=== PATIENT | male | born 1965 | race Caucasian/White ===

== ENCOUNTER 2018-01-02 19:07 | Emergency (ER) | payer SELFPAY ==
[~2018-01-02] VITALS: Ht 177.8 cm; Wt 90.9 kg
[2018-01-02 19:14] VITALS: BP 121/104
== END 2018-01-02 21:19 | disposition left against medical advice (07) ==
LOC: ER 19:08
DX: F41.9 Anxiety disorder, unspecified (principal); R00.9 Unspecified abnormalities of heart beat; Z53.21 Procedure and treatment not carried out due to patient leaving prior to being seen by health care provider
CPT/HCPCS: 93005; 99281

== ENCOUNTER 2018-01-19 00:07 | Emergency (ER) | payer BC ==
[~2018-01-19] VITALS: Ht 177.8 cm; Wt 89.9 kg
[2018-01-19 02:37] VITALS: BP 132/95
== END 2018-01-19 02:41 | disposition home or self-care (01) ==
LOC: ER 00:08
DX: R00.2 Palpitations (principal); I10 Essential (primary) hypertension; F12.10 Cannabis abuse, uncomplicated; Z87.891 Personal history of nicotine dependence
CPT/HCPCS: 36415; 84484; 93005; 99285

== ENCOUNTER 2018-04-01 14:28 | Day surgery (SDC) | payer BC ==
[2018-03-27 10:48] LABS: ALBUMIN 3.8 G/DL (3.4-5.0); ANION GAP 10 (8-16); BLOOD UREA NITROGEN 15 MG/DL (7-18); BUN/CREATININE RATIO 15.3 (5.4-32.0); CHLORIDE 104 MMOL/L (99-107); CREATININE 0.98 MG/DL (0.60-1.10); GLUCOSE 114 MG/DL (70-104); POTASSIUM 4.3 MMOL/L (3.5-5.1); SODIUM 140 MMOL/L (135-145); TOTAL CARBON DIOXIDE 25.8 MMOL/L (24-32); eGFR 80 ML/MIN
[2018-03-27 10:49] LABS: PARTIAL THROMBOPLASTIN TIME 29 SECONDS (22-32); PROTHROMBIN TIME 10.8 SECONDS (9.0-12.0)
[2018-03-27 10:50] LABS: BASOPHILS # (AUTO) 0.1 X10'3 (0-0.2); BASOPHILS % (AUTO) 0.8 % (0-1); EOSINOPHILS # (AUTO) 0.1 X10'3 (0-0.9); EOSINOPHILS % (AUTO) 2.2 % (0-6); HEMATOCRIT 43.6 % (42.0-52.0); HEMOGLOBIN 15.1 g/dl (14.0-17.9); LYMPHOCYTES # (AUTO) 1.6 X10'3 (1.1-4.8); LYMPHOCYTES % (AUTO) 25.3 % (21-51); MEAN CORPUSCULAR HEMOGLOBIN 31.4 PG (27.0-31.0); MEAN CORPUSCULAR HGB CONC 34.7 % (33.0-36.5); MEAN CORPUSCULAR VOLUME 90.4 FL (78-98); MEAN PLATELET VOLUME 7.5 FL (7.4-10.4); MONOCYTES # (AUTO) 0.6 X10'3 (0-0.9); MONOCYTES % (AUTO) 10.3 % (2-12); NEUTROPHILS # (AUTO) 3.8 X10'3 (1.8-7.7); NEUTROPHILS % (AUTO) 61.4 % (42-75); PLATELET COUNT 247 X10'3 (140-440); RED BLOOD COUNT 4.82 X10'6 (4.70-6.10); RED CELL DISTRIBUTION WIDTH 14.3 % (11.5-14.5); WHITE BLOOD COUNT 6.2 X10'3 (4.5-11.0)
[2018-04-01] VITALS (7 sets, daily range): BP systolic 111–129; BP diastolic 73–85
[~2018-04-01] VITALS: Ht 177.8 cm; Wt 89.6 kg
[2018-04-01] MEDS ORDERED: LIDOcaine/PRILOcaine 5gm cream TP ONE (14:50)
[2018-04-01] MEDS ORDERED: normal saline 1000ml 1,000 ML IV SCH (14:50)
[2018-04-01] MEDS ORDERED: diphenhydrAMINE 25mg capsule PO PRN (14:50)
[2018-04-01] MEDS ORDERED: LORazepam 0.5 MG tablet PO PRN (14:50)
[2018-04-01] MEDS ORDERED: ASPI-611 PO (15:31)
[2018-04-01] MEDS ORDERED: ALPR-624 PO (15:31)
[2018-04-01] MEDS ORDERED: NORT75CA PO (15:31)
[2018-04-01] MEDS ORDERED: ALFU10TA PO (15:31)
[2018-04-01] MEDS ORDERED: BUPR300T54 PO (15:31)
[2018-04-01] MEDS ORDERED: BENA20TA76 PO (15:31)
[2018-04-01] MEDS ORDERED: LAMO100T2 PO (15:31)
[2018-04-01] MEDS ORDERED: SILD100T PO (15:32)
[2018-04-01] MEDS ORDERED: Marjuana INH (15:34)
[2018-04-01] MEDS ORDERED: LIDOcaine 1% w/EPI 1:100,000 30ml vial (MDV) ONE (17:58)
[2018-04-01] MEDS ORDERED: iohexol 350MG/ML 100ml bottle IV ONE (17:58)
[2018-04-01] MEDS ORDERED: fentaNYL/PF 50MCG/1 ML 2ML syringe ONE (18:18)
[2018-04-01] MEDS ORDERED: proCHLORperazine 10 MG/2 ml inj ONE (18:18)
[2018-04-01] MEDS ORDERED: midazolam 2 mg/2 ml injection ONE (18:18)
[2018-04-01] MEDS ORDERED: verapamil 2.5 mg/ml inj IV ONE (18:25)
[2018-04-01] MEDS ORDERED: nitroGLYCERIN-Tridil 50MG/D5W 250 ML IV ONE (18:25)
[2018-04-01] MEDS ORDERED: LIDOcaine 1% 30ml preserv. free vial ONE (18:25)
[2018-04-01] MEDS ORDERED: heparin 1,000unit/ml 10ml vial 10 ML ONE (18:26)
[2018-04-01] MEDS ORDERED: OXAZEpam 15mg capsule PO PRN (19:30)
[2018-04-01] MEDS ORDERED: nitroGLYCERIN 0.4mg SUBLingual tab SL PRN (19:30)
== END 2018-04-01 20:26 | disposition home or self-care (01) ==
LOC: SSTAY O 14:28
PROVIDERS: ATTEND Internal Medicine Interventional Cardiology
DX: R94.39 Abnormal result of other cardiovascular function study (principal); I10 Essential (primary) hypertension; E78.5 Hyperlipidemia, unspecified; F41.8 Other specified anxiety disorders; F32.89 Other specified depressive episodes; I47.9 Paroxysmal tachycardia, unspecified; N40.0 Benign prostatic hyperplasia without lower urinary tract symptoms; Z79.891 Long term (current) use of opiate analgesic; Z87.891 Personal history of nicotine dependence; Z72.89 Other problems related to lifestyle; Z79.82 Long term (current) use of aspirin; Z79.899 Other long term (current) drug therapy
CPT/HCPCS: 36415; 80048; 85025; 85610; 85730; 93005; 93458; 99152; A6257; A6258; A6402; J0780; J1644; J2250; J3010; J3490; J7030; Q0163; Q9967; A4620

== ENCOUNTER 2019-04-24 01:17 | Emergency (ER) | payer BC, MEDICAID ==
[~2019-04-24] VITALS: Ht 177.8 cm; Wt 88.6 kg
[~2019-04-24 01:17] MED LIST: ALFU10TA PO; ALPR-624 PO; ASPI-611 PO; BENA20TA76 PO; BUPR300T54 PO; LAMO100T2 PO; Marjuana INH; NORT75CA PO; SILD100T PO
[2019-04-24 01:41] LABS: BASOPHILS % (AUTO) 0.4 % (0-1); EOSINOPHILS # (AUTO) 0.2 X10'3 (0-0.9); EOSINOPHILS % (AUTO) 2.6 % (0-6); HEMATOCRIT 44.1 % (42.0-52.0); HEMOGLOBIN 14.9 g/dl (14.0-17.9); LYMPHOCYTES # (AUTO) 2.5 X10'3 (1.1-4.8); LYMPHOCYTES % (AUTO) 31.3 % (21-51); MEAN CORPUSCULAR HEMOGLOBIN 30.5 PG (27.0-31.0); MEAN CORPUSCULAR HGB CONC 33.9 g/dL (33.0-36.5); MEAN CORPUSCULAR VOLUME 89.9 FL (78-98); MONOCYTES # (AUTO) 0.9 X10'3 (0-0.9); MONOCYTES % (AUTO) 10.9 % (2-12); NEUTROPHILS # (AUTO) 4.3 X10'3 (1.8-7.7); NEUTROPHILS % (AUTO) 54.8 % (42-75); PLATELET COUNT 265 X10'3 (140-440); RED CELL DISTRIBUTION WIDTH 14.1 % (11.5-14.5); WHITE BLOOD COUNT 7.9 X10'3 (4.5-11.0)
[2019-04-24 01:52] LABS: PARTIAL THROMBOPLASTIN TIME 29 SECONDS (22-32)
[2019-04-24 01:55] LABS: ALANINE AMINOTRANSFERASE 63 U/L (12-78); ALBUMIN 3.6 G/DL (3.4-5.0); ALBUMIN/GLOBULIN RATIO 1.1 (1.1-1.5); ALKALINE PHOSPHATASE 114 IU/L (46-116); ANION GAP 9 (8-16); ASPARTATE AMINO TRANSFERASE 53 U/L (10-37); BILIRUBIN,TOTAL 0.7 MG/DL (0.1-1.0); BLOOD UREA NITROGEN 24 MG/DL (7-18); BUN/CREATININE RATIO 26.1 (5.4-32.0); CALCIUM 8.4 MG/DL (8.5-10.1); CHLORIDE 104 MMOL/L (99-107); CREATININE 0.92 MG/DL (0.60-1.10); GLUCOSE 114 MG/DL (70-104); LIPASE 192 U/L (73-393); POTASSIUM 4.2 MMOL/L (3.5-5.1); SODIUM 139 MMOL/L (135-145); TOTAL CARBON DIOXIDE 26.3 MMOL/L (24-32); TOTAL PROTEIN 6.9 G/DL (6.4-8.2); eGFR 86 ML/MIN
[2019-04-24] MEDS ORDERED: LIDOcaine Viscous 15ml cup PO ONE (02:15)
[2019-04-24] MEDS ORDERED: mag hydrox/Alum hydrox/simeth 30ml oral suspension PO ONE (02:15)
[2019-04-24] MEDS ORDERED: famotidine 20mg tablet PO ONE ×2 (02:15→02:25)
[2019-04-24] MEDS ORDERED: PANT-47 PO (03:02)
[2019-04-24 03:18] VITALS: BP 130/102
== END 2019-04-24 03:45 | disposition home or self-care (01) ==
LOC: ER 01:18
DX: R07.89 Other chest pain (principal); I10 Essential (primary) hypertension; F12.90 Cannabis use, unspecified, uncomplicated; Z79.82 Long term (current) use of aspirin; Z79.899 Other long term (current) drug therapy
CPT/HCPCS: 36415; 71045; 80053; 83690; 84484; 85025; 85610; 85730; 93005; 99284

== ENCOUNTER 2020-04-10 16:33 | Emergency (ER) | payer MEDICAID ==
[~2020-04-10] VITALS: Ht 177.8 cm; Wt 90.0 kg
[~2020-04-10 16:33] MED LIST changes: +BUPR-319 PO; -BUPR300T54 PO; +PANT-47 PO
[2020-04-10 16:43] VITALS: BP 142/109
[2020-04-10] MEDS ORDERED: LIDOcaine 5% patch TP STA (16:57)
[2020-04-10] MEDS ORDERED: ketorolac trometh. 30mg/ml inj. IM ONE (17:00)
[2020-04-10] MEDS ORDERED: HYDR-4353 PO (17:05)
== END 2020-04-10 17:27 | disposition home or self-care (01) ==
LOC: ER 16:34
DX: M54.30 Sciatica, unspecified side (principal); M79.605 Pain in left leg; I10 Essential (primary) hypertension; F12.90 Cannabis use, unspecified, uncomplicated; Z79.82 Long term (current) use of aspirin; Z79.899 Other long term (current) drug therapy
CPT/HCPCS: 96372; 99283; J1885

== ENCOUNTER 2020-07-31 09:42 | Emergency (ER) | payer MEDICAID ==
[~2020-07-31] VITALS: Ht 177.8 cm; Wt 97.7 kg
[2020-07-31 11:40] LABS: BASOPHILS # (AUTO) 0.2 X10'3 (0-0.2); BASOPHILS % (AUTO) 1.3 % (0-1); EOSINOPHILS # (AUTO) 0.1 X10'3 (0-0.9); EOSINOPHILS % (AUTO) 1.1 % (0-6); HEMATOCRIT 46.8 % (42.0-52.0); MEAN CORPUSCULAR HEMOGLOBIN 31.1 PG (27.0-31.0); MEAN CORPUSCULAR HGB CONC 34.2 g/dL (33.0-36.5); MEAN CORPUSCULAR VOLUME 90.8 FL (78-98); MEAN PLATELET VOLUME 7.6 FL (7.4-10.4); MONOCYTES # (AUTO) 0.8 X10'3 (0-0.9); MONOCYTES % (AUTO) 6.7 % (2-12); NEUTROPHILS # (AUTO) 8.8 X10'3 (1.8-7.7); NEUTROPHILS % (AUTO) 73.9 % (42-75); PLATELET COUNT 277 X10'3 (140-440); RED BLOOD COUNT 5.16 X10'6 (4.70-6.10); RED CELL DISTRIBUTION WIDTH 14.3 % (11.5-14.5); WHITE BLOOD COUNT 11.9 X10'3 (4.5-11.0)
[2020-07-31 11:55] LABS: ALANINE AMINOTRANSFERASE 35 U/L (12-78); ALBUMIN 4.2 G/DL (3.4-5.0); ALBUMIN/GLOBULIN RATIO 1.1 (1.1-1.5); ALKALINE PHOSPHATASE 125 IU/L (46-116); ANION GAP 9 (8-16); ASPARTATE AMINO TRANSFERASE 22 U/L (10-37); BILIRUBIN,TOTAL 0.9 MG/DL (0.1-1.0); BLOOD UREA NITROGEN 16 MG/DL (7-18); BUN/CREATININE RATIO 17.8 (5.4-32.0); CALCIUM 9.1 MG/DL (8.5-10.1); CHLORIDE 104 MMOL/L (99-107); GLUCOSE 109 MG/DL (70-104); POTASSIUM 3.9 MMOL/L (3.5-5.1); SODIUM 139 MMOL/L (135-145); TOTAL CARBON DIOXIDE 25.8 MMOL/L (24-32); TOTAL PROTEIN 7.9 G/DL (6.4-8.2); eGFR 88 ML/MIN
[2020-07-31] MEDS ORDERED: metoprolol succinate 25mg (24-HOUR) SR. Tablet PO ONE (12:10)
[2020-07-31 13:06] VITALS: BP 131/97
== END 2020-07-31 12:22 | disposition home or self-care (01) ==
LOC: ER 09:43
DX: I10 Essential (primary) hypertension (principal); R07.89 Other chest pain; F12.90 Cannabis use, unspecified, uncomplicated; Z79.82 Long term (current) use of aspirin; Z79.899 Other long term (current) drug therapy
CPT/HCPCS: 36415; 71045; 80053; 83880; 84484; 85025; 93005; 99285

== ENCOUNTER 2023-03-19 02:34 | Emergency (ER) | payer MEDICAID ==
[~2023-03-19] VITALS: Ht 177.8 cm; Wt 97.7 kg
[2023-03-19 02:50] VITALS: BP 131/100
[2023-03-19] MEDS ORDERED: MEBE100T11 PO (03:19)
== END 2023-03-19 03:52 | disposition home or self-care (01) ==
LOC: ER 02:35
DX: B89 Unspecified parasitic disease (principal); I10 Essential (primary) hypertension; F31.9 Bipolar disorder, unspecified; F12.90 Cannabis use, unspecified, uncomplicated; Z79.82 Long term (current) use of aspirin; Z79.899 Other long term (current) drug therapy
CPT/HCPCS: 99283